=== PATIENT | female | born 1955 | race Caucasian/White ===

== ENCOUNTER → 2018-01-11 | Outpatient (CLI) | payer BC ==
--- NOTE | 2018-01-11 14:50 | RADIOLOGY REPORT (SQ) ---
EXAM DESCRIPTION: CT HEAD WITHOUT COMPLETED DATE/TIME: 01/11/2018 1:31 pm REASON FOR STUDY: OTHER AMNESIA R41.3 OTHER AMNESIA COMPARISON: None. TECHNIQUE: Axial images acquired through the brain without intravenous contrast. Images reviewed wi th bone, brain and subdural windows. Additional sagittal and coronal reconstructions were generated. Images stored on PACS. All CT scanners at this facility use dose modulation, iterative reconstruction, and/or weight based d osing when appropriate to reduce radiation dose to as low as reasonably achievable (ALARA). [facility]: Dose Right [facility]: CareDose [facility]: Dose Right [facility]: Teradose 4D [facility]: IXI-Play RADIATION DOSE: CT Rad equipment meets quality standard of care and radiation dose reduction techniq ues were employed. CTDIvol: 48.5 mGy. DLP: 927 mGy-cm. mGy. LIMITATIONS: None. FINDINGS: VENTRICLES: Normal size and contour. CEREBRUM: No masses. No hemorrhage. No midline shift. No evidence for acute infarction. Normal gra y/white matter differentiation. No areas of low density in the white matter. CEREBELLUM: No masses. No hemorrhage. No alteration of density. No evidence for acute infarction. EXTRAAXIAL SPACES: No fluid collections. No masses. ORBITS AND GLOBE: No intra- or extraconal masses. Normal contour of globe without masses. CALVARIUM: No fracture. PARANASAL SINUSES: No fluid or mucosal thickening. SOFT TISSUES: No mass or hematoma. OTHER: No other significant finding. IMPRESSION: NORMAL BRAIN CT WITHOUT CONTRAST. EVIDENCE OF ACUTE STROKE: No COMMENT: Quality ID # [id number]: Final reports with documentation of one or more dose reduction techniques (e.g., Automated exposure control, adjustment of the mA and/or kV according to patient size, use of iterative reconstruction technique) TECHNICAL DOCUMENTATION: JOB ID: [id number] [employer]- All Rights Reserved Reading location - IP/workstation name: [email or web address]
== END ==
LOC: RAD 13:17
PROVIDERS: ATTEND Family Medicine
DX: R41.3 Other amnesia (principal)
CPT/HCPCS: 70450

== ENCOUNTER 2019-04-25 22:48 | Emergency (ER) | payer BC ==
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
[2019-04-25 23:47] LABS: APPEARANCE,URINE SLIGHTLY-CLOUDY; BILIRUBIN,URINE NEGATIVE (NEGATIVE); COLOR,URINE YELLOW; GLUCOSE, URINE NEGATIVE (NEGATIVE); KETONES,URINE NEGATIVE (NEGATIVE); LEUKOCYTE ESTERASE,URINE LARGE (NEGATIVE); NITRITE,URINE NEGATIVE (NEGATIVE); PROTEIN,URINE NEGATIVE (NEGATIVE); URINE SPECIFIC GRAVITY 1.016; UROBILINOGEN,URINE NEGATIVE mg/dL (<2.0)
[2019-04-25 23:48] LABS: ABSOLUTE BASOPHILS # (AUTO) 0.1 10^3/uL (0.0-0.2); ABSOLUTE EOSINOPHILS # (AUTO) 0.1 10^3/uL (0.0-0.6); ABSOLUTE LYMPHOCYTES (AUTO) 2.2 10^3/uL (0.5-4.7); ABSOLUTE MONOCYTES (AUTO) 0.6 10^3/uL (0.1-1.4); ABSOLUTE NEUT (AUTO) 3.3 10^3/uL (1.7-8.2); BASOPHILS % (AUTO) 1.4 % (0-2); EOSINOPHILS % (AUTO) 1.9 % (0-6); HEMOGLOBIN 13.2 g/dL (12.0-15.5); MEAN CORPUSCULAR HEMOGLOBIN 31.7 pg (27.0-33.4); MEAN CORPUSCULAR HGB CONC 34.6 g/dL (32.0-36.0); MEAN CORPUSCULAR VOLUME 92 fl (80-97); MONOCYTES % (AUTO) 9.2 % (3-13); PLATELET COUNT 195 10^3/uL (150-450); RED BLOOD COUNT 4.15 10^6/uL (3.72-5.28); RED CELL DISTRIBUTION WIDTH 13.6 % (11.5-14.0); SEGMENTED NEUTROPHILS % (AUTO) 52.5 % (42-78); TOTAL CELLS COUNTED % (AUTO) 100 %; WHITE BLOOD COUNT 6.3 10^3/uL (4.0-10.5)
[2019-04-25 23:59] LABS: URINE AMPHETAMINES SCREEN NEGATIVE; URINE BARBITURATES SCREEN NEGATIVE; URINE BENZODIAZEPINES SCREEN NEGATIVE; URINE COCAINE SCREEN NEGATIVE; URINE MARIJUANA (THC) SCREEN NEGATIVE; URINE METHADONE SCREEN NEGATIVE; URINE PHENCYCLIDINE SCREEN NEGATIVE
--- NOTE | 2019-04-26 00:04 | EKG REPORT ---
SEVERITY:- OTHERWISE NORMAL ECG - SINUS BRADYCARDIA : Confirmed by: Gareth Hampton 26-Apr-2019 00:03:28
[2019-04-26 00:08] LABS: ALANINE AMINOTRANSFERASE 28 U/L (9-52); ALBUMIN 4.2 g/dL (3.5-5.0); ALKALINE PHOSPHATASE 61 U/L (38-126); ANION GAP 5 (5-19); ASPARTATE AMINO TRANSFERASE 30 U/L (14-36); BILIRUBIN,DIRECT 0.2 mg/dL (0.0-0.4); BILIRUBIN,TOTAL 0.4 mg/dL (0.2-1.3); BLOOD UREA NITROGEN 10 mg/dL (7-20); CALCIUM 9.3 mg/dL (8.4-10.2); CARBON DIOXIDE 28 mmol/L (22-30); CHLORIDE 102 mmol/L (98-107); GLUCOSE 86 mg/dL (75-110); POTASSIUM 3.7 mmol/L (3.6-5.0); TOTAL PROTEIN 6.9 g/dL (6.3-8.2)
[2019-04-26 00:17] LABS: ACETAMINOPHEN < 10 ug/mL (10-30); ALCOHOL < 10 mg/dL (NONE DETECTED); SALICYLATE < 1.0 mg/dL (2.0-20.0)
--- NOTE | 2019-04-26 00:35 | RADIOLOGY REPORT (SQ) ---
CT HEAD WITHOUT IV CONTRAST EXAM DATE: 04/25/2019 11:58 PM CDT HISTORY: AMS. COMPARISON: 01/11/2018 TECHNIQUE: CT scan of the brain without IV contrast. This exam was performed according to our departmental dose-optimization program, which includes automated exposure control, adjustment of the mA and/or kV according to patient size and/or use of iterative reconstruction technique. FINDINGS: The ventricles, cisterns, and sulci are age-appropriate. No evidence of acute infarction, intracranial hemorrhage, extra-axial fluid collection, or midline shift. Minimal mucosal thickening of the left maxillary sinus. No air-fluid levels are seen. No depressed skull fracture. IMPRESSION: No acute intracranial findings.
[2019-04-26] MEDS ORDERED: CEPHALEXIN 500 MG CAPSULE PO ONE (01:10)
[2019-04-26] MEDS ORDERED: LORAZEPAM 1 MG TABLET PO ONE (03:34)
[2019-04-26] MEDS: CEPHALEXIN 500 MG CAPSULE PO SCH ×2 (09:47→17:34)
--- NOTE | 2019-04-26 10:43 | ER Document Report ---
Doctor's Note Notes: 04/26/19 10:42 Rounds: Chart reviewed and patient interviewed. Patient is having suicidal thoughts as well as homicidal thoughts towards her . She was brought in for involuntary commitment. Patient apparently has some history of memory problems and may be early dementia. Vital signs here are all normal. Labs are normal except it looks like patient may have a UTI. She had a culture of her urine performed and started on Keflex. Patient is very pleasant and cooperative. Patient appears to be medically stable for transfer or discharge. Weston Smart MD 04/26/19 19:30 Patient has been calm throughout most of the day. She is interacted well with staff. She has spent a lot of time outside of her room. She was moved from her first bed over to pod 4. She refused to go in her room over there and had to be restrained to keep her in her room. I also ordered some Haldol and Benadryl to try to sedate her enough that she will stay in there without being in restraints.
[2019-04-26] MEDS: DIVALPROEX SODIUM 250 MG TAB.SR.24H PO SCH ×2 (10:44→17:33)
[2019-04-26] MEDS: SERTRALINE HCL 50 MG TABLET PO SCH (10:44)
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
[2019-04-26] MEDS: RISPERIDONE 0.25 MG TABLET PO SCH (17:34)
[2019-04-26] MEDS ORDERED: HALOPERIDOL 5 MG TABLET PO ONE (19:28)
[2019-04-26] MEDS ORDERED: DIPHENHYDRAMINE HCL 25 MG CAPSULE PO ONE (19:28)
[2019-04-27] MEDS: CEPHALEXIN 500 MG CAPSULE PO SCH (09:34)
[2019-04-27] MEDS: RISPERIDONE 0.25 MG TABLET PO SCH (09:34)
[2019-04-27] MEDS: SERTRALINE HCL 50 MG TABLET PO SCH (09:34)
[2019-04-27] MEDS: DIVALPROEX SODIUM 250 MG TAB.SR.24H PO SCH (09:34)
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
[2019-04-27 11:40] VITALS: BP 121/69
== END 2019-04-27 11:40 | disposition home or self-care (01) ==
LOC: ER 22:48
DX: F03.91 Unspecified dementia, unspecified severity, with behavioral disturbance (principal); N39.0 Urinary tract infection, site not specified; R45.851 Suicidal ideations; R45.850 Homicidal ideations; I10 Essential (primary) hypertension; F32.9 Major depressive disorder, single episode, unspecified; Z79.899 Other long term (current) drug therapy; Z78.1 Physical restraint status
CPT/HCPCS: 93005; 99285; 36415; 87086; 80307 ×4; 85025; 80053; 81001; 70450; 93010; J3490 ×4

== ENCOUNTER 2019-05-25 18:36 | Emergency (ER) | payer BC ==
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
[2019-05-25 19:45] LABS: ABSOLUTE BASOPHILS # (AUTO) 0.1 10^3/uL (0.0-0.2); ABSOLUTE EOSINOPHILS # (AUTO) 0.1 10^3/uL (0.0-0.6); ABSOLUTE LYMPHOCYTES (AUTO) 1.9 10^3/uL (0.5-4.7); ABSOLUTE MONOCYTES (AUTO) 0.8 10^3/uL (0.1-1.4); BASOPHILS % (AUTO) 1.3 % (0-2); HEMATOCRIT 38.6 % (36.0-47.0); HEMOGLOBIN 13.2 g/dL (12.0-15.5); LYMPHOCYTES % (AUTO) 32.2 % (13-45); MEAN CORPUSCULAR HEMOGLOBIN 31.4 pg (27.0-33.4); MEAN CORPUSCULAR HGB CONC 34.2 g/dL (32.0-36.0); MEAN CORPUSCULAR VOLUME 92 fl (80-97); MONOCYTES % (AUTO) 13.1 % (3-13); PLATELET COUNT 175 10^3/uL (150-450); RED BLOOD COUNT 4.21 10^6/uL (3.72-5.28); RED CELL DISTRIBUTION WIDTH 12.8 % (11.5-14.0); SEGMENTED NEUTROPHILS % (AUTO) 51.4 % (42-78); TOTAL CELLS COUNTED % (AUTO) 100 %; WHITE BLOOD COUNT 5.8 10^3/uL (4.0-10.5)
[2019-05-25 20:06] LABS: ALBUMIN 4.3 g/dL (3.5-5.0); ALKALINE PHOSPHATASE 56 U/L (38-126); ANION GAP 9 (5-19); ASPARTATE AMINO TRANSFERASE 25 U/L (14-36); BILIRUBIN,DIRECT 0.1 mg/dL (0.0-0.4); BILIRUBIN,TOTAL 0.4 mg/dL (0.2-1.3); BLOOD UREA NITROGEN 12 mg/dL (7-20); CALCIUM 9.8 mg/dL (8.4-10.2); CARBON DIOXIDE 29 mmol/L (22-30); CHLORIDE 103 mmol/L (98-107); POTASSIUM 4.5 mmol/L (3.6-5.0)
[2019-05-25 20:09] LABS: ACETAMINOPHEN < 10 ug/mL (10-30); ALCOHOL < 10 mg/dL (NONE DETECTED); SALICYLATE < 1.0 mg/dL (2.0-20.0)
[2019-05-25 20:10] LABS: GLUCOSE 68 mg/dL (75-110)
[2019-05-25] MEDS ORDERED: LORAZEPAM INJ 2 MG/1 ML VIAL IM ONE (21:34)
[2019-05-25] MEDS ORDERED: DIPHENHYDRAMINE HCL 50 MG/ML VIAL IM ONE (21:34)
[2019-05-25 22:09] LABS: APPEARANCE,URINE SLIGHTLY-CLOUDY; BILIRUBIN,URINE NEGATIVE (NEGATIVE); CALCIUM OXALATE CRYSTALS,URINE FEW /HPF; COLOR,URINE YELLOW; GLUCOSE, URINE NEGATIVE (NEGATIVE); KETONES,URINE TRACE mg/dL (NEGATIVE); LEUKOCYTE ESTERASE,URINE LARGE (NEGATIVE); NITRITE,URINE NEGATIVE (NEGATIVE); PROTEIN,URINE NEGATIVE (NEGATIVE); URINE SPECIFIC GRAVITY 1.025
[2019-05-25 22:21] LABS: URINE AMPHETAMINES SCREEN NEGATIVE; URINE BARBITURATES SCREEN NEGATIVE; URINE BENZODIAZEPINES SCREEN NEGATIVE; URINE COCAINE SCREEN NEGATIVE; URINE MARIJUANA (THC) SCREEN NEGATIVE; URINE METHADONE SCREEN NEGATIVE; URINE PHENCYCLIDINE SCREEN NEGATIVE
[2019-05-25] MEDS ORDERED: DONEPEZIL HCL 5 MG TABLET PO ONE (23:30)
[2019-05-25] MEDS ORDERED: RISPERIDONE 0.25 MG TABLET PO ONE (23:30)
[2019-05-25] MEDS ORDERED: DIVALPROEX SODIUM 250 MG TABLET.DR PO ONE (23:30)
--- NOTE | 2019-05-26 08:47 | PSYCHOLOGICAL NOTE ---
Psych Note - Psych Note Date seen by psych provider: 05/26/19 Time seen by psych provider: 07:50 Psych Note: Reason for Consult: IVC Patient arrived to [facility] ED via Source Inspector department under IVC. Mobile student worker petitioned IVC for concerns that the patient has been threatening to kill/shoot her and other people in the home and has been experiencing visual hallucinations of seeing people in her home and in the street when there is no one there. Patient is observed having extreme difficulty with impulse control. Patient continually needs to be redirected at which she complies however on quickly forgets and goes back to needing to be redirected. Patient reports that she had a "stressful day yesterday" because she states her is close to her that he does not know if he wants to be anymore. At this point the patient became very tearful. Patient demonstrates flight of thought but is very focused on her belongings and what she should do. Patient repeatedly asked what she should do. Chart review conducted: Patient currently is noted to have a urinary tract infection. Behavioral health team contacted [facility] on 04/26/2019 to confirm patient has been prescribed Aricept since April 2018. For the first 3 months patient was taking 5 mg daily however in July it was increased to 10 mg daily. Medication recommendations per [facility]'s contracted psychiatrist Dr. Yosi MCFADDEN are as follows Discontinue home medication of Aricept 10 mg daily Depakote 500 mg twice daily Clonidine 0.1 mg 24-hour transdermal patch BuSpar 5 mg twice daily discontinue Risperidone once There is concern the patient's home medication of Oxydutynin Chloride could be increasing symtoms of confusion and psychosis Attending physicians are asked to consider to avoid prescribing benzodiazepine (e.g. Ativan, Xanax, Valium, Klonopin), antipsychotics (e.g. Haldol, Geodon, Zyprexa, Seroquel), some sleep aids (e.g. Ambien, Lunesta, Sonata), narcotic pain medications, and high-dose steroids (prednisone) as these have been known to cause and/or increased symptoms of aggression, psychosis and/or paranoia in patients with neurodegenerative processes such as dementia, Alzheimer's disease, traumatic brain injury, etc. Diagnosis: 799.59 (R41.9) Unspecified Neurocognitive Disorder per history Urinary tract infection Impression\\plan: Patient is recommended for rescind of IVC and observation overnight due to medication adjustments. Patient presents with behavioral episodes and psychosis. Patient is seen by neurology through [facility] Internal medicine and has been prescribed Aricept (cognitive-enhancing medication for neurodegenerative processes) since April 2018. In the geriatric, and populations experiencing neurodegenerative processes, urinary tract infection can cause an acute change in mental status this can range from agitation, aggression, restlessness to withdrawing and confusion, hallucinations and/or delusions. Medication recommendations have been provided and patient will be held overnight with probable clearance from acute psychiatric services in the morning. Dr. Milner was consulted to care and management of this patient; attending physicians in agreement with recommendations and disposition.
--- NOTE | 2019-05-26 09:14 | ER Document Report ---
Doctor's Note Notes: 05/26/19 09:13 63-year-old female who presents with IVC paperwork secondary possibly to some homicidal ideations towards her . Patient supposedly has dementia. Patient denies any suicidal or homicidal ideations here. Patient was supposedly also having some visual hallucinations that she denies. The urine analysis is leukocyte esterase positive. Keflex has been started. I have added a urine culture. Awaiting psychiatry evaluation.
[2019-05-26] MEDS ORDERED: DIVALPROEX SODIUM 250 MG TABLET.DR PO SCH (10:00)
[2019-05-26] MEDS ORDERED: RISPERIDONE 0.25 MG TABLET PO SCH (10:00)
[2019-05-26] MEDS: LISINOPRIL 10 MG TABLET PO SCH (10:09)
[2019-05-26] MEDS: CEPHALEXIN 500 MG CAPSULE PO SCH ×2 (10:09→17:12)
[2019-05-26] MEDS ORDERED: BUSPIRONE HCL 10 MG TABLET PO SCH (11:30)
[2019-05-26] MEDS: CLONIDINE 0.1 MG/24 HR PATCH.TDWK TD SCH (11:47)
[2019-05-26] MEDS ORDERED: OLANZAPINE 5 MG TAB.RAPDIS PO ONE (17:02)
[2019-05-26] MEDS: DIVALPROEX SODIUM 500 MG TAB.SR.24H PO SCH (17:12)
[2019-05-26] MEDS: BUSPIRONE HCL 10 MG TABLET PO SCH (17:12)
--- NOTE | 2019-05-26 19:10 | EKG REPORT ---
SEVERITY:- NORMAL ECG - SINUS RHYTHM : Confirmed by: Jenny Dejesus MD 26-May-2019 19:09:19
[2019-05-26] MEDS ORDERED: DONEPEZIL HCL 5 MG TABLET PO SCH (22:00)
[2019-05-27] MEDS: LISINOPRIL 10 MG TABLET PO SCH (09:23)
[2019-05-27] MEDS: CEPHALEXIN 500 MG CAPSULE PO SCH ×2 (09:23→17:30)
[2019-05-27] MEDS: BUSPIRONE HCL 10 MG TABLET PO SCH ×2 (09:24→17:30)
[2019-05-27] MEDS: DIVALPROEX SODIUM 500 MG TAB.SR.24H PO SCH ×2 (09:25→17:30)
[2019-05-27] MEDS: CLONIDINE 0.1 MG/24 HR PATCH.TDWK TD SCH (09:25)
--- NOTE | 2019-05-27 10:35 | PSYCHOLOGICAL NOTE ---
Psych Note - Psych Note Date seen by psych provider: 05/27/19 Time seen by psych provider: 07:30 Psych Note: Reason for Consult: IVC Patient Shahbaz Patient arrived to [facility] ED via Occupational Therapy Program Director department under IVC. Mobile formula room worker petitioned IVC for concerns that the patient has been threatening to kill/shoot her and other people in the home and has been experiencing visual hallucinations of seeing people in her home and in the street when there is no one there. Patient continues to demonstrate significant difficulties in controlling her impulses. Patient needs constant redirection shows little ability for memory or abstract thought processes. Clinician spoke with patient's who reports that the patient was diagnosed approximately 2 to 3 years ago with neuro degenerative processes. He disclosed there was mild symptoms periodically however it was not until this past March that the patient has escalated to the point where she is on able to be redirected, violent, and verbally aggressive. He discloses that he just wants to be able to manage her symptoms. He disclosed that the other night she became so irate that she took a hammer and smashed her iPad In addition to verbally threatening to kill him. He reports that she does not ever sleep but in small increments then wakes up at 1 AM makes a pot of coffee and expects him to be up with her for the day. Medication recommendations per [facility]'s contracted psychiatrist Dr. Yosi MCFADDEN are as follows Discontinue home medication of Aricept 10 mg daily Depakote 500 mg twice daily Clonidine 0.1 mg 24-hour transdermal patch BuSpar 5 mg twice daily Updated Zyprexa Zydis 2.5 mg every 4 hours Cogentin 1 mg daily There is concern the patient's home medication of Oxydutynin Chloride could be increasing symptoms of confusion and psychosis Diagnosis: 799.59 (R41.9) Unspecified Neurocognitive Disorder per history Urinary tract infection Impression\plan: Patient is recommended for rescind of IVC and observation overnight due to medication adjustments. Patient presents with behavioral episodes and psychosis. [facility] and has been prescribed Aricept (cognitive-enhancing medication for neurodegenerative processes) since April 2018. In the geriatric, and populations experiencing neurodegenerative processes, urinary tract i nfection can cause an acute change in mental status this can range from agitation, aggression, restlessness to withdrawing and confusion, hallucinations and/or delusions. Medication recommendations have been provided and patient will be held overnight with probable clearance from acute psychiatric services in the morning. Dr. Milner was consulted to care and management of this patie nt; attending physicians in agreement with recommendations and disposition. No outgoing calls for patient please
[2019-05-27] MEDS ORDERED: OLANZAPINE 5 MG TAB.RAPDIS PO ONE (16:43)
[2019-05-27] MEDS ORDERED: BENZTROPINE MESYLATE 1 MG TABLET PO ONE (16:43)
[2019-05-27] MEDS: OLANZAPINE 5 MG TAB.RAPDIS PO SCH (21:02)
[2019-05-28] MEDS: OLANZAPINE 5 MG TAB.RAPDIS PO SCH ×5 (01:37→20:58)
[2019-05-28] MEDS ORDERED: LORAZEPAM 1 MG TABLET PO ONE (10:10)
[2019-05-28] MEDS: BUSPIRONE HCL 10 MG TABLET PO SCH ×2 (10:18→19:32)
[2019-05-28] MEDS: LISINOPRIL 10 MG TABLET PO SCH (10:19)
[2019-05-28] MEDS: BENZTROPINE MESYLATE 1 MG TABLET PO SCH (10:19)
[2019-05-28] MEDS: DIVALPROEX SODIUM 500 MG TAB.SR.24H PO SCH ×2 (10:19→19:32)
[2019-05-28] MEDS: CEPHALEXIN 500 MG CAPSULE PO SCH ×2 (10:19→19:32)
[2019-05-28] MEDS: CLONIDINE 0.1 MG/24 HR PATCH.TDWK TD SCH (10:20)
--- NOTE | 2019-05-28 14:25 | PSYCHOLOGICAL NOTE ---
Psych Note - Psych Note Date seen by psych provider: 05/28/19 Time seen by psych provider: 07:42 - Discussion with nurses for shift change at 0720. Chart review at 0742. Evaluation from [id number]. Ongoing Observation. Psych Note: Presenting Concern: Initially brought in petitioned for IVC by [facility] for HI towards and MH Hx, has dementia history and being treated by [facility] Medicine with Aricept, increased confusion and agitation. Today patient inquired about breakfast and when it was coming 3-4 times in a 20 minute period. She asked to call her daughter. When this clinician asked what her daughter's name was she froze and stated "I can't remember." Then after a couple minuted she said "I don't have a daughter I have 3 sisters...no I do have a daughter." She mentioned she was not here last night and when the Patient Skilled Nursing Case Manager reminded her she was and about their interaction patient looked stunned with glossy eyes. She was talking with the Patient Skilled Nursing Case Manager and then said "what did I say before I lost my train of thought." During nurse to nurse pass off collections rep nurses stated patient slept maybe 4 hours last night, could not be redirected, wouldn't follow instructions, would ask for things over and over (like coffee, breakfast), had poor recall/memory and threw her blankets on the floor. Attending nurse reported mood lability (between euthymic and depressed/crying). Spoke to ED /DC Planning. Vickie Hernandez noted that patient's BCBS has $3500 deductible and a 7 days stay would be like $5000 so a decent chunk would come out of pocket. [facility] was in network but dementia is exclusionary. They reached out to [facility] for recommendations. does not want placement but to bring patient home once stabilized. 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 Yosi MD., includes: Treating Physicians are asked to consider avoiding the use of antipsychotic medications (Haldol, Geodon, Zyprexa, Risperdal), benzodiazepines (Klonopin, Xanax, Ativan, Valium), some sleep aids (Ambien, Trazodone, Seroquel), narcotic pain medications and prolonged use of steroids as these have been known to cause and/or exacerbate MH symptoms (psychosis: hallucinations/paranoia/delusional thinking/geronimo, aggression, agitation and confusion) in individuals with neurodegenerative processes. Stop the use of Ativan, other benzos and antipsychotics except what has already been recommended. Change /Decrease Zyprexa to 5MG every 6 hours for mood stabilization/psychos is/impulse control Impression/Plan: Recommendation for IVC. Patient is still not stabilized. Further medication recommendations provided. ED SW/DC Planning involved. This clinician and ED SW coordinated care. Waiting for patient's BCBS to get back to ED SW about options. Consulted with Dr. Milner regarding the management and care of patient. ED Physician in agreement with recommendations.
[2019-05-28] MEDS ORDERED: LORAZEPAM INJ 2 MG/1 ML VIAL ONE (21:41)
[2019-05-28] MEDS ORDERED: ZIPRASIDONE MESYLATE INJ/PF 20 MG SDV IM ONE (21:45)
[2019-05-29] MEDS: OLANZAPINE 5 MG TAB.RAPDIS PO SCH ×5 (05:51→20:10)
[2019-05-29] MEDS: DIVALPROEX SODIUM 500 MG TAB.SR.24H PO SCH ×2 (09:30→17:30)
[2019-05-29] MEDS: BUSPIRONE HCL 10 MG TABLET PO SCH ×2 (09:30→17:12)
[2019-05-29] MEDS: BENZTROPINE MESYLATE 1 MG TABLET PO SCH (09:30)
[2019-05-29] MEDS: LISINOPRIL 10 MG TABLET PO SCH (09:30)
[2019-05-29] MEDS: CLONIDINE 0.1 MG/24 HR PATCH.TDWK TD SCH (09:31)
[2019-05-29] MEDS: CEPHALEXIN 500 MG CAPSULE PO SCH (09:31)
--- NOTE | 2019-05-29 10:43 | ER Document Report ---
Doctor's Note Notes: 05/29/19 10:42 Rounds: Chart reviewed and patient interviewed. Patient being evaluated for altered mental status, likely secondary to do dementia and other factors. Her lab studies suggested a UTI, but the culture shows 50-60,000 colony count of lactobacillus, normal vaginal andrea. Her Keflex that she was taking is being discontinued. All other labs are essentially normal. Vital signs been normal. Patient appears to be medically stable for transfer or discharge. Weston Smart MD
--- NOTE | 2019-05-29 15:03 | RADIOLOGY REPORT (SQ) ---
EXAM DESCRIPTION: CHEST 2 VIEWS COMPLETED DATE/TIME: 05/29/2019 2:40 pm REASON FOR STUDY: medical clearance COMPARISON: None. EXAM PARAMETERS: NUMBER OF VIEWS: two views TECHNIQUE: Digital Frontal and Lateral radiographic views of the chest acquired. RADIATION DOSE: NA LIMITATIONS: none FINDINGS: LUNGS AND PLEURA: No opacities, masses or pneumothorax. No pleural effusion. MEDIASTINUM AND HILAR STRUCTURES: No masses or contour abnormalities. HEART AND VASCULAR STRUCTURES: Heart normal size. No evidence for failure. BONES: Mild dextroconvex scoliosis of the thoracic spine. HARDWARE: None in the chest. OTHER: No other significant finding. IMPRESSION: 1. NO ACUTE RADIOGRAPHIC FINDING IN THE CHEST. TECHNICAL DOCUMENTATION: JOB ID: [id number] [employer]- All Rights Reserved Reading location - IP/workstation name: [email or web address]
--- NOTE | 2019-05-29 15:27 | PSYCHOLOGICAL NOTE ---
Psych Note - Psych Note Date seen by psych provider: 05/29/19 Time seen by psych provider: 08:08 - Chart review at 0808. Evaluation from [id number]. Psych Note: Presenting Concern: Initially brought in petitioned for IVC by [facility] for HI towards and MH Hx, has dementia history and being treated by [facility] Medicine with Aricept, increased confusion and agitation. Patient was observed constantly leaving her room, required redirection with numerous prompts, often not listening (likely more related to confusion and frustration). When the nurse tried to redirect her verbally several times and patient did not listen nurse came alongside patient to use body positioning to get patient back to room which still did not work so nurse gently touched patient's elbow. Patient snapped "don't touch me" and body language became rigid. She talked with this clinician and walked back to her room. She commented "I just want to , I will commit suicide today." and began crying. She showed mood lability and was confused. Overnight documentation noted patient was irate, cursing, often in the hallway with delusional complaints, refused redirection or required lots of prompting, security had to make presence and reportedly patient was physical and uncooperative. Continued care coordination with ED SW. 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 Yosi MD., includes: Treating Physicians are asked to consider avoiding the use of antipsychotic medications (Haldol, Geodon, Zyprexa, Risperdal), benzodiazepines (Klonopin, Xanax, Ativan, Valium), some sleep aids (Ambien, Trazodone, Seroquel), narcotic pain medications and prolonged use of steroids as these have been known to cause and/or exacerbate MH symptoms (psychosis: hallucinations/paranoia/delusional thinking/geronimo, aggression, agitation and confusion) in individuals with neurodegenerative processes. Impression/Plan: Recommendation to maintain IVC. Patient is still not stabilized. Presented with mood lability (euthymic, agitated, sad/tearful). ED SW/DC Planning involved. This clinician and ED SW coordinated care. [facility] told ED SW [facility] was in network however they do not have psych. ED SW made referral to [place]. Consulted with Dr. Milner regarding the management and care of patient. ED Physician in agreement with recommendations.
[2019-05-29 21:57] LABS: APPEARANCE,URINE CLEAR; BILIRUBIN,URINE NEGATIVE (NEGATIVE); COLOR,URINE STRAW; GLUCOSE, URINE NEGATIVE (NEGATIVE); KETONES,URINE NEGATIVE (NEGATIVE); LEUKOCYTE ESTERASE,URINE MODERATE (NEGATIVE); NITRITE,URINE NEGATIVE (NEGATIVE); PROTEIN,URINE NEGATIVE (NEGATIVE); URINE SPECIFIC GRAVITY 1.009; UROBILINOGEN,URINE NEGATIVE mg/dL (<2.0)
[2019-05-30] MEDS: OLANZAPINE 5 MG TAB.RAPDIS PO SCH ×4 (02:16→20:09)
[2019-05-30] MEDS: BUSPIRONE HCL 10 MG TABLET PO SCH ×2 (09:37→18:08)
[2019-05-30] MEDS: CLONIDINE 0.1 MG/24 HR PATCH.TDWK TD SCH (09:37)
[2019-05-30] MEDS: DIVALPROEX SODIUM 500 MG TAB.SR.24H PO SCH ×2 (09:38→18:07)
[2019-05-30] MEDS: BENZTROPINE MESYLATE 1 MG TABLET PO SCH (09:38)
[2019-05-30] MEDS: LISINOPRIL 10 MG TABLET PO SCH (09:39)
--- NOTE | 2019-05-30 10:41 | ER Document Report ---
Doctor's Note Notes: 05/30/19 10:40 Rounds: Chart reviewed and patient interviewed. Patient is being evaluated for altered mental status. She has a history of some dementia. Currently patient is trying to fold the cover off of her stretcher which is been there. Confused. Vital signs are all normal. Lab studies were all normal. Patient appears to be medically stable for transfer or discharge. Weston Smart MD
--- NOTE | 2019-05-30 11:26 | PSYCHOLOGICAL NOTE ---
Psych Note - Psych Note Date seen by psych provider: 05/30/19 Time seen by psych provider: 08:19 - Chart review at 0819, coordination with ED SW, ongoing observation throughout the day Psych Note: Presenting Concern: Initially brought in petitioned for IVC by [facility] for HI towards and MH Hx, has dementia history and being treated by [facility] Medicine with Aricept, increased confusion and agitation. No change in behavior or presentation today. Still requires redirection, often leaves her room, mood lability, confusion and easily agitated (seems to be when frustrated). 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 Yosi MD., includes: Treating Physicians are asked to consider avoiding the use of antipsychotic medications (Haldol, Geodon, Zyprexa, Risperdal), benzodiazepines (Klonopin, Xanax, Ativan, Valium), some sleep aids (Ambien, Trazodone, Seroquel), narcotic pain medications and prolonged use of steroids as these have been known to cause and/or exacerbate MH symptoms (psychosis: hallucinations/paranoia/delusional thinking/geronimo, aggression, agitation and confusion) in individuals with neurodegenerative processes. Impression/Plan: Recommendation to maintain IVC. Patient is still not stabilized. Presentation has not changed. Patient continued to require lots of redirection. ED SW/DC Planning involved. This clinician and ED SW coordinated care. ED SW noted a referral was sent to [place] yesterday and ED SW would call to check in on status today. Agreed if [facility] does not accept patient then options have likely been exhausted. Consulted with Dr. Milner regarding the management and care of patient. ED Physician in agreement with recommendations.
[2019-05-31] MEDS ORDERED: TRAZODONE HCL 50 MG TABLET PO ONE (00:54)
--- NOTE | 2019-05-31 00:55 | ER Document Report ---
Doctor's Note Notes: 05/31/19 00:54 I was notified by nursing that patient is having problems with insomnia. She is not resting comfortably, is currently almost 1:00 in the morning. I will go ahead and add trazodone 50 mg right now to see if that helps.
[2019-05-31] MEDS: OLANZAPINE 5 MG TAB.RAPDIS PO SCH ×3 (01:42→13:14)
[2019-05-31] MEDS: BUSPIRONE HCL 10 MG TABLET PO SCH (09:10)
[2019-05-31] MEDS: CLONIDINE 0.1 MG/24 HR PATCH.TDWK TD SCH (09:10)
[2019-05-31] MEDS: DIVALPROEX SODIUM 500 MG TAB.SR.24H PO SCH (09:10)
[2019-05-31] MEDS: BENZTROPINE MESYLATE 1 MG TABLET PO SCH (09:10)
[2019-05-31] MEDS: LISINOPRIL 10 MG TABLET PO SCH (09:10)
--- NOTE | 2019-05-31 12:12 | PSYCHOLOGICAL NOTE ---
Psych Note - Psych Note Date seen by psych provider: 05/31/19 Time seen by psych provider: 09:10 Psych Note: Reason for Consult: IVC Patient Shahbaz Patient arrived to [facility] ED via Customer Retention Specialist department under IVC. Mobile cinder crew worker petitioned IVC for concerns that the patient has been threatening to kill/shoot her and other people in the home and has been experiencing visual hallucinations of seeing people in her home and in the street when there is no one there. Clinician was notified by discharge planning that the patient has agreed to car pick up driver the patient. Additional resources will be provided by discharge planning to the patient's . Medication recommendations per [facility]'s contracted psychiatrist Dr. Yosi MCFADDEN are as follows Discontinue home medication of Aricept 10 mg daily Depakote 500 mg twice daily Clonidine 0.1 mg 24-hour transdermal patch BuSpar 5 mg twice daily Updated Zyprexa Zydis 2.5 mg every 6 hours Cogentin 1 mg daily There is concern the patient's home medication of Oxydutynin Chloride could be increasing symptoms of confusion and psychosis Diagnosis: 799.59 (R41.9) Unspecified Neurocognitive Disorder per history Urinary tract infection Impression\plan: Patient is cleared from acute psychiatric services. Patient presents with behavioral episodes and psychosis. Patient is seen by neurology [facility] Internal medicine and has been prescribed Aricept (cognitive- enhancing medication for neurodegenerative processes) since April 2018. Medication adjustments have been conducted. Resources for additional assistance has been provided to the patient's by discharge planning staff. Dr. Milner was consulted to care and management of this patient; attending physicians in agreement with recommendations and disposition.
--- NOTE | 2019-05-31 12:47 | ER Document Report ---
Doctor's Note Notes: 05/31/19 12:45 Rounds: Chart reviewed and patient interviewed. Patient is very pleasant and talkative. She is coloring pictures. No complaints. Vital signs are all essentially normal. No labs to review. Patient appears to be medically stable for transfer or discharge. Plan is for patient to be discharged home to her 's care. Weston Smart MD
[2019-05-31 14:13] VITALS: BP 120/75
== END 2019-05-31 14:13 | disposition home or self-care (01) ==
LOC: ER 18:36
DX: R45.850 Homicidal ideations (principal); N39.0 Urinary tract infection, site not specified; R41.82 Altered mental status, unspecified; F03.90 Unspecified dementia, unspecified severity, without behavioral disturbance, psychotic disturbance, mood disturbance, and anxiety; F32.9 Major depressive disorder, single episode, unspecified; R44.1 Visual hallucinations; I10 Essential (primary) hypertension
CPT/HCPCS: 93005; 99285; 96374; 96375; 36415; 87086; 80307 ×4; 85025; 80053; 81001; 80164; 93010; J3490 ×14; J1200; J2060 ×2; J3486